=== PATIENT | male | born 1970 | race Caucasian/White ===

== ENCOUNTER 2018-06-25 04:40 | Emergency (ER) | payer OTHER ==
[~2018-06-25] VITALS: Ht 170.2 cm; Wt 64.9 kg
[~2018-06-25 04:40] MED LIST: ADDERALL 10 MG10 MG; ANAPROX; BACTRIM DS TAB1 EACH PO; CARISOPRODOL 3350 MG; FLEXERIL PO; GENTAMICIN SU3 MG/ML OPHTHALMIC; KEFLEX500 M1 PO; NEURONTIN 300300 M1; NORCO 5-325 TA1 EACH PO; OCUFLOX10 ML OP; OXYCONTIN CR 1010 MG; OXYCONTIN40 MG; PERCOCET; PERCOCET 10-321 EACH; PERCOCET 5-3251 EACH PO; SIMVASTATIN40 MG; VICODIN 5-5001 EACH PO; XANAX1 MG PO
[2018-06-25] MEDS ORDERED: OXYCONTIN20 M1 (04:50)
[2018-06-25 05:37] LABS: ABSOLUTE BASOPHILS 0.1 thou/uL (0.0-0.2); ABSOLUTE EOSINOPHILS 0.1 thou/uL (0.0-0.7); ABSOLUTE LYMPHOCYTES 2.2 thou/uL (0.8-5.3); ABSOLUTE MONOCYTES 1.1 thou/uL (0.0-1.2); ABSOLUTE NEUTROPHILS 7.4 thou/uL (1.6-8.1); BASOPHILS 0.5 %; EOSINOPHILS 1.4 %; HEMATOCRIT 38.8 % (42.0-52.0); HEMOGLOBIN 13.1 gm/dL (14.0-18.0); MCH 30.2 pg (26.0-34.0); MCHC 33.9 g/dL (28.0-37.0); MCV 89.2 fL (80.0-100.0); MONOCYTES 10.2 %; MPV 8.8 fl. (7.2-11.1); NUCLEATED RBCS 0 /100WBC; PLATELET COUNT* 282 thou/uL (150-400); POLYS 67.9 %; RBC 4.35 mil/uL (4.50-6.00); RDW-CV 12.6 % (10.5-14.5); WBC 10.9 thou/uL (4.0-11.0)
[2018-06-25 05:49] LABS: CALCIUM 9.5 mg/dL (8.5-10.1); CREATININE 0.9 mg/dL (0.6-1.3); POTASSIUM 4.1 mmol/L (3.5-5.1)
[2018-06-25 05:52] LABS: URIC ACID* 3.7 mg/dL (2.6-7.2)
[2018-06-25] MEDS ORDERED: OXYCODONE HCL15 MG PO (06:20)
[2018-06-25] MEDS ORDERED: INDOMETHACIN 2525 MG PO (06:22)
[2018-06-25 06:50] VITALS: BP 115/78
[2018-06-25 07:07] LABS: ESR (SEDRATE) 45 mm/hr (0-15)
== END 2018-06-25 06:50 | disposition home or self-care (01) ==
LOC: M.ERS 04:40
PROVIDERS: Emergency Medicine
DX: M25.462 Effusion, left knee (principal); F17.200 Nicotine dependence, unspecified, uncomplicated; E78.00 Pure hypercholesterolemia, unspecified; M51.36 Other intervertebral disc degeneration, lumbar region; F41.9 Anxiety disorder, unspecified

== ENCOUNTER 2018-08-15 02:00 | Emergency (ER) | payer OTHER ==
[~2018-08-15] VITALS: Ht 167.6 cm; Wt 67.1 kg
[~2018-08-15 02:00] MED LIST changes: +INDOMETHACIN 2525 MG PO; +OXYCODONE HCL15 MG PO; +OXYCONTIN20 M1
[2018-08-15 02:06] VITALS: BP 130/91
== END 2018-08-15 02:33 | disposition home or self-care (01) ==
LOC: M.ERS 02:00
DX: H92.02 Otalgia, left ear (principal); E78.00 Pure hypercholesterolemia, unspecified; F41.9 Anxiety disorder, unspecified; F17.210 Nicotine dependence, cigarettes, uncomplicated